=== PATIENT | male | born 1945 | race African-American/Black ===

== ENCOUNTER 2018-07-09 16:19 | Inpatient (IN) | payer OTHER ==
[~2018-07-09] VITALS: Ht 188 cm; Wt 112.3 kg
[2018-07-09 17:18] LABS: PLATELET COUNT 164 x10^3mcL (130-400)
[2018-07-09 17:27] LABS: CALCIUM 9.3 mg/dL (8.5-10.1); CARBON DIOXIDE 21.1 mmol/L (21-32); CHLORIDE SERUM 102 mmol/L (98-107); CREATININE SERUM 1.4 mg/dL (0.7-1.3); GLUCOSE SERUM 71 mg/dL (74-106); POTASSIUM SERUM 3.9 mmol/L (3.5-5.1); SODIUM SERUM 143 mmol/L (136-145)
[2018-07-09 17:33] LABS: RED CELL DISTRIBUTION WIDTH 15.5 % (11.5-14.5)
[2018-07-09 18:06] LABS: BAND NEUTROPHIL 0 % (0-10); BASOPHIL 0 % (0-2); MONOCYTE 5 % (0-7); SEGMENTED NEUTROPHILS 66 % (37-75); rbc morphology (normal/abnorm) ABNORMAL (NORMAL)
[2018-07-09] MEDS ORDERED: CYCLOBENZAPRINE5 MG (18:56)
[2018-07-09] MEDS ORDERED: TRAMADOL HCL50 MG PO (18:56)
[2018-07-09] MEDS ORDERED: VERAPAMIL HCL180 M1 PO (18:56)
[2018-07-09 20:04] VITALS: BP 160/94
[2018-07-09 20:09] LABS: CHOLESTEROL/HDL RATIO 2.8; MAGNESIUM 1.7 mg/dL (1.8-2.4)
[2018-07-09 20:16] LABS: FREE T4 0.56 ng/dL (0.76-1.46); T3 TOTAL 0.74 ng/mL
[2018-07-09 20:19] LABS: FREE THYROXINE INDEX 1.3 ug/dL (1.4-4.5); T4(THYROXINE) 4.2 ug/dL (4.7-13.3)
[2018-07-09 22:50] LABS: UA SPECIFIC GRAVITY >=1.030 (1.005-1.035); microscopic required? YES; urine erythrocyte 1+ (NEGATIVE)
[2018-07-09 23:02] LABS: AMPHETAMINE QUAL UR NONE DETECTED (See below)
[2018-07-10 03:57] LABS: CALCIUM 9.1 mg/dL (8.5-10.1); CARBON DIOXIDE 20.2 mmol/L (21-32); CHLORIDE SERUM 102 mmol/L (98-107); CREATININE SERUM 1.2 mg/dL (0.7-1.3); MAGNESIUM 1.3 mg/dL (1.8-2.4); PHOSPHOROUS 2.9 mg/dL (2.5-4.9); POTASSIUM SERUM 4.3 mmol/L (3.5-5.1); SODIUM SERUM 139 mmol/L (136-145)
[2018-07-10 04:11] LABS: GLUCOSE SERUM 55 mg/dL (74-106)
[2018-07-10 05:18] LABS: BASOPHIL % 0.4 % (0-2); PLATELET COUNT 143 x10^3mcL (130-400)
[2018-07-10 05:26] VITALS: BP 148/94
[2018-07-10 08:51] VITALS: BP 159/89
[2018-07-10 12:33] VITALS: BP 162/93
[2018-07-10 16:59] VITALS: BP 148/84
[2018-07-10 20:09] VITALS: BP 143/73
[2018-07-11 05:56] VITALS: BP 139/93
[2018-07-11 06:32] LABS: CARBON DIOXIDE 29.3 mmol/L (21-32); CHLORIDE SERUM 101 mmol/L (98-107); GLUCOSE SERUM 131 mg/dL (74-106); MAGNESIUM 1.8 mg/dL (1.8-2.4); PHOSPHOROUS 1.9 mg/dL (2.5-4.9); SODIUM SERUM 136 mmol/L (136-145)
[2018-07-11 07:02] LABS: BASOPHIL % 0.1 % (0-2); PLATELET COUNT 150 x10^3mcL (130-400)
[2018-07-11 07:06] LABS: RED CELL DISTRIBUTION WIDTH 14.9 % (11.5-14.5)
[2018-07-11] MEDS ORDERED: XARELTO20 M1 PO (07:46)
[2018-07-11] MEDS ORDERED: METOPROLOL TART25 M1 PO (07:48)
[2018-07-11 09:09] VITALS: BP 152/86
[2018-07-11 09:44] VITALS: BP 152/86
== END 2018-07-11 10:16 | disposition home or self-care (01) | DRG 604 ==
LOC: ED 16:19 → DU 18:57
PROVIDERS: Emergency Medicine; Internal Medicine
DX: S20.212A Contusion of left front wall of thorax, initial encounter (principal); N17.0 Acute kidney failure with tubular necrosis; I48.1 Persistent atrial fibrillation; E83.42 Hypomagnesemia; E78.5 Hyperlipidemia, unspecified; E03.9 Hypothyroidism, unspecified; I10 Essential (primary) hypertension; M19.90 Unspecified osteoarthritis, unspecified site; Z85.46 Personal history of malignant neoplasm of prostate; W18.39XA Other fall on same level, initial encounter; Y93.89 Activity, other specified; Y92.018 Other place in single-family (private) house as the place of occurrence of the external cause
CPT/HCPCS: 82962; 83880; 84439; J3010; J3490; J7030